=== PATIENT | female | born 1955 ===

== ENCOUNTER → 2017-06-01 | Outpatient (CLI) | payer OTHER, MEDICAID | LOC: CIMAGING 12:31 | DX: R05 Cough (principal); R91.1 Solitary pulmonary nodule | CPT/HCPCS: 71020-PO ==

== ENCOUNTER → 2017-10-19 | Day surgery (SDC) | payer MEDICAID, OTHER ==
[~2017-10-19] MED LIST: ALTEPLASE 2 MG VIAL IVP PRN; FLUMAZENIL 0.5 MG/5 ML MDV IVP PRN; GLUCAGON HCL 1 MG VIAL IVP PRN; HEPARIN 10,000 UNIT/10 ML MDV (1,000 UNIT/ML) IVP PRN; MEPERIDINE 25 MG/ML SYR IVP PRN; MIDAZOLAM 2 MG/2 ML VIAL IVP PRN; NALOXONE HCL 0.4 MG/ML INJ IVP PRN; NS 1,000 ML IV SCH; ONDANSETRON 4 MG/2 ML VIAL IVP PRN; PROTAMINE SULFATE 50 MG/5 ML VIAL IVP PRN; fentaNYL 100 MCG/2 ML INJ IVP PRN; oxyCODONE IR 5 MG TAB PO PRN
[2017-10-19 11:21] LABS: INR 1.01 (0.83-1.16); PROTIME(PATIENT) 13.5 SEC (12.0-15.0)
[2017-10-19 11:25] VITALS: TEMP 98.8
--- NOTE | 2017-10-19 12:13 | PDPROPOC ---
Sedation Plan of Care ASA Classification: ASA 1 Planned drugs: fentanyl, midazolam Mallampati Score: Class 2 Mallampati Reference Image: Patient passed 3-3-2 rule?: Yes
--- NOTE | 2017-10-19 12:13 | PDGENHP ---
History & Physical Chief Complaint: mediastinal mass History of Present Illness: 62[address] chest revealing 5cm well circumscribed mass in the anterior mediastinum. Pertinent Past, Social, Family History: n/a Relevant Physical Exam: RRR, nl WOB Cardiorespiratory Assessment: wnl
--- NOTE | 2017-10-19 12:39 | PDRADPN ---
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 No post bx hematoma Inf/Abcess present in the surg proc area at time of surgery?: No Depth: Deep Incisional (Fascial) EBL: Minimal Complications: none Specimen(s): Two 18G cores in formalin
[2017-10-19 13:37] VITALS: BP 133/83; RESP 16; O2SAT 96
[2017-10-19 13:51] VITALS: PULSE 80
== END | disposition home or self-care (01) ==
LOC: FIMAGING 10:04
PROVIDERS: ATTEND Radiology Diagnostic Radiology
PROC: 0WBC3ZX Excision of Mediastinum, Percutaneous Approach, Diagnostic (ICD-10-PCS; principal; 2017-10-19 12:48)
PROC: BW241ZZ Computerized Tomography (CT Scan) of Chest and Abdomen using Low Osmolar Contrast (ICD-10-PCS; principal; 2017-10-19 12:48)
DX: D15.0 Benign neoplasm of thymus (principal); M79.7 Fibromyalgia; E11.9 Type 2 diabetes mellitus without complications; Z79.84 Long term (current) use of oral hypoglycemic drugs
CPT/HCPCS: J2250; J2310; J3010

== ENCOUNTER 2017-11-07 10:02 | Inpatient (IN) | payer OTHER ==
[2017-11-07] MEDS ORDERED: CLINDAMYCIN 900 MG/DEXTROSE 50 ML IV ONE (13:33)
[2017-11-07] MEDS ORDERED: LR 1,000 ML IV ONE (13:37)
[2017-11-07] MEDS ORDERED: LIDOCAINE 1% 2 ML INJ ID PRN (13:37)
[2017-11-07] MEDS ORDERED: BUPIVACAINE 0.5% 30 ML SDV ONE (15:18)
[2017-11-07] MEDS ORDERED: MIDAZOLAM 2 MG/2 ML VIAL ONE (15:31)
--- NOTE | 2017-11-07 15:34 | PDANEPAE ---
ANE History of Present Illness 62 yo for vats, thymectomy ANE Past Medical History - Cardiovascular History Hx Hypertension: No Hx Arrhythmias: No Hx Chest Pain: No Hx Coronary Artery / Peripheral Vascular Disease: No Hx CHF / Valvular Disease: No Hx Palpitations: No - Pulmonary History Hx COPD: No Hx Asthma/Reactive Airway Disease: No Hx Recent Upper Respiratory Infection: No Hx Oxygen in Use at Home: No Hx Sleep Apnea: No Sleep Apnea Screening Result - Last Documented: Negative Pulmonary History Comment: smokes 10 cigs/day ~50yrs. - Neurologic History Hx Cerebrovascular Accident: No Hx Seizures: No Hx Dementia: No - Endocrine History Hx Diabetes: Yes Endocrine History Comment: controling with diet; hyperthyroid - Renal History Hx Renal Disorders: No - Liver History Hx Hepatic Disorders: No - Neurological & Psychiatric Hx Hx Neurological and Psychiatric Disorders: Yes Neurological / Psychiatric History Comment: Fibromyalgia - Cancer History Hx Cancer: No - Congenital Disorder History Hx Congenital Disorders: No - GI History Hx Gastrointestinal Disorders: No Gastrointestinal History Comment: medication related constipation - Other Health History Other Health History: thymoma causing hoarseness(V.C.) muscle spasms in lower neck area and thyroid discomfort. 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 tonsilectomy ANE Review of Systems Review of Systems: - Exercise capacity METS (RN): 4 METS ANE Patient History - Allergies Allergies/Adverse Reactions: Penicillins Allergy (Mild, Verified 11/07/17 13:39) Other-Enter Comments silver [From Tegaderm AG Mesh] Allergy (Mild, Verified 11/07/17 14:24) Rash - Home Medications Home medications: home medication list seen and reviewed Home Medications: Diclofenac Sodium [Voltaren 50 MG (*)] 50 mg PO TID PRN 10/18/17 [Last Taken 08/24 20:00] Naproxen Sodium [Aleve 220 MG (*)] 220 mg PO BID PRN 10/18/17 [Last Taken 10:00] Pregabalin [Lyrica 100mg (*)] 100 mg PO TID PRN 10/18/17 [Last Taken 11/06/17] SAVELLA 12.5 mg PO TID PRN 10/18/17 [Last Taken 11/06/17] Tapentadol HCl [Nucynta 50 MG (*)] 50 mg PO BID PRN 10/18/17 [Last Taken ] Tizanidine HCl [Zanaflex] 4 mg PO TID PRN 10/18/17 [Last Taken 11/06/17] Vitamin E Acetate [VITAMIN E] 400 unit PO DAILY 10/18/17 [Last Taken 1 Week Ago ~10/27/17] Cholecalciferol Vit D3 [Vitamin D3 (*)] 2,000 units PO DAILY 11/03/17 [Last Taken 1 Week Ago ~10/27/17] Herbals/Supplements -Info Only 1 ea PO DAILY 11/03/17 [Last Taken 1 Week Ago ~] Methimazole [Tapazole 5MG (*)] 2.5 mg PO HS 11/03/17 [Last Taken 11/06/17] - NPO status NPO Status: no food or drink >8 hours NPO Since - Liquids (Date): 11/07/17 NPO Since - Liquids (Time): 12:00 NPO Since - Solids (Date): 11/07/17 NPO Since - Solids (Time): 05:00 - Smoking Hx Smoking Status: Heavy smoker - Family Anes Hx Family Hx Anesthesia Complications: denies ANE Labs/Vital Signs - Vital Signs Blood Pressure: 135/87 Heart Rate: 93 Respiratory Rate: 16 O2 Sat (%): 93 Height: 5 ft 4 in Weight: 74.843 kg ANE Physical Exam - Airway Neck exam: FROM Mallampati Score: Class 2 Mouth exam: dentures - Pulmonary Pulmonary: no respiratory distress - Cardiovascular Cardiovascular: regular rate and rhythym - ASA Status ASA Status: II ANE Anesthesia Plan Anesthesia Plan: general endotracheal anesthesia
[2017-11-07] MEDS ORDERED: MIDAZOLAM 2 MG/2 ML VIAL IVP ONE (15:35)
[2017-11-07] MEDS ORDERED: fentaNYL 250 MCG/5 ML INJ ONE (15:40)
[2017-11-07] MEDS ORDERED: PROPOFOL/EMULSION 500 MG/50 ML BOTTLE IV ONE (15:40)
--- NOTE | 2017-11-07 15:40 | PDHPUP ---
History & Physical Update H&P update statement: This history and physical update is based on an assessment of the patient which was completed after admission or registration (within 24 hours), but prior to the surgery/procedure. H&P update: H&P reviewed & patient examined, no change in patient's condition since H&P completed
[2017-11-07] MEDS ORDERED: HEPARIN 1000 UNIT/1 ML MDV ONE (17:02)
[2017-11-07] MEDS: BUPIVACAINE 0.5% 30 ML SDV ONE ×2 (17:09→18:00)
[2017-11-07] MEDS ORDERED: HYDROmorphONE/DILAUDID 2 MG/ML INJ ONE ×2 (17:33→19:26)
[2017-11-07] MEDS ORDERED: PROPOFOL 200 MG/20 ML VIAL ONE (17:43)
[2017-11-07] MEDS ORDERED: ONDANSETRON 4 MG/2 ML VIAL IVP PRN ×2 (18:13→18:33)
[2017-11-07] MEDS ORDERED: NALOXONE HCL 0.4 MG/ML INJ IVP PRN (18:13)
--- NOTE | 2017-11-07 18:32 | POSTOPPROG ---
Post Op Note Date of Operation: 11/07/17 Surgeon: Morales An [employer] Animal Caretaker: Trinh Manning Anesthesiologist: Chicho Bennett Anesthesia: GET(General Endotracheal) Pre-op Diagnosis: thymoma with compressive changes, hoarse voice Post-op Diagnosis: same Procedure: L VATS c L thoractomy and thymectomy with DONTE wedge biopsy Findings: large firm tumor, grossly benign appearing nodule in periphery of DONTE Inf/Abcess present in the surg proc area at time of surgery?: No EBL: 300cc Complications: none Drains: Other (chest tube) Specimen(s): to pathology for permanent review
[2017-11-07] MEDS ORDERED: MILNACIPRAN 12.5 MG PO PRN (18:36)
[2017-11-07] MEDS ORDERED: NON-FORMULARY NEW DRUG (Tizanidine Hcl [Zanaflex] 4 MG) PO PRN (18:36)
[2017-11-07] MEDS ORDERED: TAPENTADOL HCL 50 MG TAB PO PRN (18:36)
[2017-11-07] MEDS ORDERED: PREGABALIN 100 MG CAP PO PRN (18:36)
[2017-11-07] MEDS ORDERED: NS W/ 20 KCl/L 1,000 ML IV SCH (18:45)
[2017-11-07] MEDS ORDERED: fentaNYL 100 MCG/2 ML INJ ONE ×2 (19:03→19:26)
[2017-11-07] MEDS: fentaNYL 100 MCG/2 ML INJ IVP PRN ×4 (19:06→19:55)
[2017-11-07] MEDS: HYDROmorphONE/DILAUDID 2 MG/ML INJ IVP PRN ×2 (19:27→19:56)
[2017-11-07] MEDS: OXYCODONE/APAP 5/325 TAB PO PRN (20:39)
[2017-11-07] MEDS: DOCUSATE SODIUM 100 MG CAP PO SCH (21:03)
[2017-11-07] MEDS: BUPIVACAINE 0.5% 30 ML SDV MISC SCH (21:04)
[2017-11-07] MEDS: METHIMAZOLE 5 MG TAB PO SCH (21:13)
[2017-11-08] MEDS: KETOROLAC 15 MG/1 ML SDV IVP SCH ×5 (00:47→23:44)
[2017-11-08] MEDS: BUPIVACAINE 0.5% 30 ML SDV MISC SCH ×2 (02:12→05:01)
[2017-11-08] MEDS: DOCUSATE SODIUM 100 MG CAP PO SCH ×2 (08:45→20:27)
[2017-11-08] MEDS ORDERED: BUPIVACAINE 0.5% 30 ML SDV MISC PRN (09:00)
--- NOTE | 2017-11-08 09:05 | SOAPPROG ---
SOAP Progress Note Assessment/Plan: Assessment/Plan: 62 Y F s/p LVATS c L thoracotomy, resection of compressive thymoma, DONTE wedge bx, POD#1. Doing well this am. No air leak. Still high output--250cc overnight[address] tube to water seal. Pain controlled. Toradol and PO meds helping. Change bupivicaine infusion from titi to prn--pt thinks it is just causing breast numbness. Tolerating diet. Buff cap IV. Hyperkalemia. Stopping IVF c K+. Metp in am. Dispo: medsurg S: only hurts when coughing. no sob O: alert, nad ctab, no air leak rrr abd soft inc well dressed 11/08/17 09:01 Objective: Vital Signs Temp Pulse Resp BP Pulse Ox 36.3 C 80 22 H 125/56 H 97 11/08/17 08:00 11/08/17 08:00 11/08/17 08:00 11/08/17 08:00 11/08/17 08:00 Laboratory Results 11/08/17 05:20 11/08/17 05:20 11/07/17 11/08/17 11/09/17 05:59 05:59 05:59 Intake Total 3417 Output Total 1150 Balance 2267 ICD10 Worksheet Patient Problems: Problems Problem Status Onset Lung nodule Acute Thymoma Acute - ICD10 Problem Qualifiers (1) Thymoma (2) Lung nodule
--- NOTE | 2017-11-08 09:45 | PDMN ---
Medical Necessity Medical necessity: [id number] Thoracotomy with biospsy or misc procedures by VATS A-2 days : L VATS c L thoracotomy and thymectomy with DONTE wedge biopsy
--- NOTE | 2017-11-08 11:17 | ASMTCASEMG ---
Living Arrangements What is your living Answers: Alone arrangement? Who do you live with? Type Of Residence What kind of residence do Answers: House you live in? Discharge Plan Comments Coordination Status Comments Notes: Patient is a 62yo female who was admitted for resection of compressive thymoma, DONTE wedge, s/p LVATS c L thoracotomy. Patient is doing well, pain controlled. No therapies have been ordered at this time. D/C plan TBD. CM will follow. Date Signed: 11/08/2017 11:17 AM Electronically Signed By:Annalee Hanson LCSW
[2017-11-08] MEDS: METHIMAZOLE 5 MG TAB PO SCH (20:28)
[2017-11-08] MEDS: OXYCODONE/APAP 5/325 TAB PO PRN (23:49)
[2017-11-09] MEDS: KETOROLAC 15 MG/1 ML SDV IVP SCH ×3 (05:35→17:55)
[2017-11-09] MEDS: OXYCODONE/APAP 5/325 TAB PO PRN (05:35)
[2017-11-09] MEDS: DOCUSATE SODIUM 100 MG CAP PO SCH ×2 (08:17→21:15)
--- NOTE | 2017-11-09 11:18 | SOAPPROG ---
SOAP Progress Note Assessment/Plan: Assessment: 62 Y F s/p LVATS c L thoracotomy, resection of compressive thymoma, DONTE wedge bx / S: Doing well this am. Eager to get up and moving. Pain well controlled on toradol and PO meds. Feels the hoarseness of her voice is improving. O: Alert Afebrile Cardiac: RRR Lungs: CTA bilaterally. No air leak. 200cc out in last 24 hours in chest tube. Down from 250cc the night before. Incisions cdi. Plan: Chest xray this am shows improved aeration and bibasilar atelectasis. Ok to get up oob. Likely home in the next couple of days. 11/09/17 11:07 Objective: Vital Signs Temp Pulse Resp BP Pulse Ox 36.9 C 91 16 149/77 H 90 L 11/09/17 08:00 11/09/17 08:00 11/09/17 08:00 11/09/17 08:00 11/09/17 08:00 Laboratory Results 11/08/17 05:20 11/09/17 05:16 11/08/17 11/09/17 11/10/17 05:59 05:59 05:59 Intake Total 3417 Output Total 1150 200 Balance 2267 -200 ICD10 Worksheet Patient Problems: Problems Problem Status Onset Lung nodule Acute Thymoma Acute
[2017-11-09] MEDS ORDERED: ZOLPIDEM TARTRATE 5 MG TAB PO PRN (16:48)
[2017-11-09] MEDS: METHIMAZOLE 5 MG TAB PO SCH (21:15)
[2017-11-10] MEDS: KETOROLAC 15 MG/1 ML SDV IVP SCH ×3 (01:09→12:22)
[2017-11-10] MEDS: DOCUSATE SODIUM 100 MG CAP PO SCH (07:57)
--- NOTE | 2017-11-10 10:23 | SOAPPROG ---
SOAP Progress Note Assessment/Plan: Assessment: 62 Y F s/p LVATS c L thoracotomy, resection of compressive thymoma, DONTE wedge bx 11/07 S: Doing well this am. Eager to get up and moving. Pain well controlled on toradol and PO meds. Feels the hoarseness of her voice is improving. O: Alert Afebrile Cardiac: RRR Lungs: CTA bilaterally. No air leak. 200cc out in last 24 hours in chest tube. Down from 250cc the night before. Incisions cdi. Plan: Chest xray this am shows improved aeration and bibasilar atelectasis. Ok to get up oob. Likely home in the next couple of days. 11/09/17 11:07 11/10/17 10:21 Doing well. Pleased that she slept well last night. Denies SOB and cough. Eager to get chest tube out. Pain in left chest similar to yesterday, but well controlled. 45ml out from chest tube in last 24 hours. Afebrile. Will pull chest tube today. Discharge home. Objective: Vital Signs Temp Pulse Resp BP Pulse Ox 36.5 C 79 14 129/81 H 92 11/10/17 08:00 11/10/17 08:00 11/10/17 08:00 11/10/17 08:00 11/10/17 08:00 Laboratory Results 11/08/17 05:20 11/09/17 05:16 11/09/17 11/10/17 11/11/17 05:59 05:59 05:59 Intake Total 700 Output Total 200 1000 45 Balance -200 -300 -45 ICD10 Worksheet Patient Problems: Problems Problem Status Onset Lung nodule Acute Thymoma Acute
[2017-11-10 16:25] VITALS: BP 134/74
[2017-11-10] MEDS: OXYCODONE/APAP 5/325 TAB PO PRN (16:36)
--- NOTE | 2017-11-10 17:31 | ASMTCMCOM ---
CM Note CM Note Notes: Spoke w/RN, CT pulled and pt can DC home. No other needs, will dc home independent. Date Signed: 11/10/2017 05:31 PM Electronically Signed By:Concha Hurtado RN
== END 2017-11-10 18:45 | disposition home or self-care (01) | DRG 804 ==
LOC: F3N 13:23 → F2N 20:33 → F3E 11-08 11:16
PROVIDERS: ADMIT Surgery; ATTEND Surgery
PROC: 0BBJ0ZX Excision of Left Lower Lung Lobe, Open Approach, Diagnostic (ICD-10-PCS; principal; 2017-11-07 14:45)
PROC: 07TM0ZZ Resection of Thymus, Open Approach (ICD-10-PCS; principal; 2017-11-07 14:45)
PROC: 0W9B30Z Drainage of Left Pleural Cavity with Drainage Device, Percutaneous Approach (ICD-10-PCS; principal; 2017-11-07 14:45)
PROC: 0WJC4ZZ Inspection of Mediastinum, Percutaneous Endoscopic Approach (ICD-10-PCS; principal; 2017-11-07 14:45)
DX: D15.0 Benign neoplasm of thymus (principal); M79.7 Fibromyalgia; R91.8 Other nonspecific abnormal finding of lung field; F17.210 Nicotine dependence, cigarettes, uncomplicated; E11.9 Type 2 diabetes mellitus without complications
CPT/HCPCS: J0171; J1170; J1885; J2250; J2704; J3010

== ENCOUNTER → 2017-11-13 | Outpatient (CLI) | payer OTHER | LOC: FIMAGING 11:25 | PROVIDERS: ATTEND Surgery | DX: J98.11 Atelectasis (principal); Z48.89 Encounter for other specified surgical aftercare; Z90.89 Acquired absence of other organs; Z98.890 Other specified postprocedural states ==

== ENCOUNTER → 2017-12-29 | Outpatient (CLI) | payer OTHER | LOC: FLAB 12:23 | PROVIDERS: ATTEND Family Medicine | DX: R07.9 Chest pain, unspecified (principal) ==